=== PATIENT | female | born 1995 | race Caucasian/White ===

== ENCOUNTER 2018-02-22 10:58 | Emergency (ER) | payer SELFPAY ==
--- NOTE | 2018-02-22 13:06 | ER ---
Nurse's Notes [facility] Name: Sandra Rubio Age: 22 yrs Sex: Female : 1995 Arrival Date: 02/22/2018 Time: 11:02 Bed Waiting Private MD: None, None Diagnosis: Presentation: 02/22 11:07 Presenting complaint: Patient states: Nausea and shakiness since this AM with vomiting aj x 1 episode. Patient is 17 weeks . Denies bleeding or pain. FSBS 98 at home. Transition of care: patient was not received from another setting of care. Onset of symptoms was February 22, 2018. Initial Sepsis Screen: Does the patient meet any 2 criteria? No. Patient's initial sepsis screen is negative. Does the patient have a suspected source of infection? No. Patient's initial sepsis screen is negative. Care prior to arrival: None. 11:07 Method Of Arrival: Ambulatory aj 11:07 Acuity: BEVERLEY 4 aj Triage Assessment: 11:11 General: Appears in no apparent distress. comfortable, Behavior is calm, cooperative, aj appropriate for age. Pain: Denies pain. Neuro: Level of Consciousness is awake, alert, obeys commands, Oriented to person, place, time, situation, Appropriate for age. Respiratory: Airway is patent Respiratory effort is even, unlabored, Respiratory pattern is regular, symmetrical. GI: Reports nausea, vomiting. Derm: Skin is intact, is healthy with good turgor, Skin is pink, warm \T\ dry. normal. REROLLER HAND: 11:11 LMP 10/11/2017 aj Historical: - Allergies: 11:11 PENICILLINS; aj - Home Meds: 11:11 None [Active]; aj - PMHx: 11:11 gestational diabetes; aj - PSHx: 11:11 None; aj - Immunization history:: Adult Immunizations up to date. - Social history:: Smoking status: Patient/guardian denies using tobacco. Vital Signs: 11:11 BP 141 / 80; Pulse 92; Resp 18; Temp 97.6; Pulse Ox 98% on R/A; Weight 79.83 kg; Height aj 5 ft. 2 in. (157.48 cm); Pain 0/10; 11:11 Body Mass Index 32.19 (79.83 kg, 157.48 cm) aj ED Course: 11:02 Patient arrived in ED. mr 11:04 None, None is Private Physician. mr 11:11 Triage completed. aj 11:13 Arm band placed on left wrist. Patient placed in waiting room, Patient notified of wait aj time. 12:58 Patient's name was called from ER lobby. No response. [email or web address] 13:05 Rebel Guerrero MD is Attending Physician. aj Administered Medications: No medications were administered Outcome: 13:03 Eloped from waiting room, before seeing physician Time discovered patient gone: February at 13:04 13:05 Patient left the ED. aj Signatures: Rashmi Burnett, RN RN Blank Noguera mr Shwetha Gutierrez, RN RN [id number]
== END 2018-02-22 13:05 | disposition left against medical advice (07) ==
LOC: ER 10:58
DX: Z53.21 Procedure and treatment not carried out due to patient leaving prior to being seen by health care provider (principal)
CPT/HCPCS: 99281